=== PATIENT | female | born 1975 | race Caucasian/White ===

== ENCOUNTER 2017-12-02 12:02 | Emergency (ER) | payer OTHER, SELFPAY ==
[2017-12-02 12:08] VITALS: BP 109/71; PULSE 86; RESP 20; TEMP 36.6; O2SAT 98; BMI 36.9
--- NOTE | 2017-12-02 12:11 | DI.RAD.S_ITS ---
PROCEDURE: XR HAND RT MIN 3V INDICATIONS: injury pain TECHNIQUE: 3 views of the hand(s) acquired. COMPARISON: None. FINDINGS: Bones: No fractures or dislocations. Carpal bones are normally aligned. No suspicious bony lesions. Soft tissues: No suspicious soft tissue calcifications. There is a skin marker at the base of the fifth proximal phalanx indicating area of laceration. No underlying foreign body seen. IMPRESSION: Negative for fracture or soft tissue foreign body. Dictated by: Bienvenido Joiner M.D. on 12/02/2017 at 12:31 Approved by: Bienveindo Joiner M.D. on 12/02/2017 at 12:33
[2017-12-02] MEDS: TET,DIPH,PERTUSS(ACELL),VAC/PF 0.5 ML SYRINGE IM (12:55)
--- NOTE | 2017-12-02 13:11 | PC.NURSE ---
Soaking pts hand in NS and hibiclens
--- NOTE | 2017-12-02 13:53 | ED.UPPEXIN ---
HPI - Extremity Injury (Upper) <DEONTE Dockery - Last Filed: 12/02/17 23:32> General Chief Complaint: Extremity Injury, Upper Stated Complaint: Right hand laceration/pain Time Seen by Provider: 12/02/17 12:48 Source: patient Mode of arrival: ambulatory Limitations: no limitations History of Present Illness HPI narrative: Patient presents with right hand pain after having had stepped been a bone anchor. She states that there is a laceration next her 5th digit. She denies any decreased sensation. She denies any decreased mobility. She is not sure when her last tetanus was. Related Data Allergies Allergy/AdvReac Type Severity Reaction Status Date / Time amoxicillin Allergy Verified 12/02/17 12:07 Sulfa (Sulfonamide Allergy Verified 12/02/17 12:07 Antibiotics) Review of Systems <DEONTE Docekry - Last Filed: 12/02/17 23:32> Review of Systems GENERAL: Denies chills, fatigue, malaise, fever, sweats. HEENT: Denies sinus pain, ear pain, sore throat, difficulty swallowing, dizziness. RESPIRATORY: Denies dyspnea, cough, wheezing, hemoptysis, sputum. CARDIOVASCULAR: Denies chest pain, palpitations, orthopnea, edema, GASTROINTESTINAL: Denies nausea, vomiting, abdominal pain, diarrhea, constipation, melena. : Denies dysuria, frequency, incontinence, hematuria, urinary retention. MUSCULOSKELETAL: See HPI SKIN: HPI NEUROLOGIC: Denies weakness, headache, numbness, change in speech, confusion, seizures, incoordination. PSYCHIATRIC: No concerning psychosocial issues. 12 point review of systems is negative except for those stated above Exam <DEONTE oDckery - Last Filed: 12/02/17 23:32> Narrative Exam Narrative: GENERAL: This is a well-nourished, well-developed patient, in mild distress sitting on stretcher. HEAD: Atraumatic. Normocephalic. No temporal or scalp tenderness. EYES: Pupils equal round and reactive. Extraocular motions intact. No scleral icterus. No injection or drainage. ENT: Nose without bleeding, purulent drainage or septal hematoma. Throat without erythema, tonsillar hypertrophy or exudate. Uvula midline. Airway patent. NECK: Trachea midline. No JVD or lymphadenopathy. Supple, nontender, no meningeal signs. CARDIOVASCULAR: Regular rate and rhythm without murmurs, gallops, or rubs. RESPIRATORY: Clear to auscultation. Breath sounds equal bilaterally. No wheezes, rales, or rhonchi. GASTROINTESTINAL: Abdomen soft, non-tender, nondistended. No hepato-splenomegaly, or palpable masses. No guarding. EXTREMITIES: Pain to palpation of right he hand distal to 5th digit. Patient has full range of motion of right 5th digit and right fingers. Capillary refills less than 2 sec all fingers right hand. BACK: Nontender without deformity or crepitance. No flank tenderness. NEURO: AOx3. SKIN: The noted to have avulsion injury to distal phalanx of the right 5th digit extending down to lateral aspect of right hand. Injury is approximately 4 cm long and is noted to be an avulsion injury. No bone or tendon visible. Fascia visible. The wound is very irregular. Initial Vital Signs Initial Vital Signs: Vital Signs Temperature 97.9 F 12/02/17 12:08 Pulse Rate 86 12/02/17 12:08 Respiratory Rate 20 12/02/17 12:08 Blood Pressure 109/71 12/02/17 12:08 Pulse Oximetry 98 12/02/17 12:08 <Hira Reyes DO - Last Filed: 12/03/17 07:24> Initial Vital Signs Initial Vital Signs: Vital Signs Temperature 97.9 F 12/02/17 12:08 Pulse Rate 86 12/02/17 12:08 Respiratory Rate 20 12/02/17 12:08 Blood Pressure 109/71 12/02/17 12:08 Pulse Oximetry 98 12/02/17 12:08 Procedures <DEONTE Dockery - Last Filed: 12/02/17 23:32> Laceration Repair Laceration 1: Site: hand Side (If applicable): right Size (cm): 4 Description: flap and irregular Depth: simple, single layer Local Anesthetic: lidocaine 1% (digital block) Amount of anesthesia used (mL): 3 Pre-repair: wound explored, irrigated extensively and deep structures intact Skin layer closed with: nylon Size (cm): 6-0 Number of sutures: 8 Technique: simple, interrupted Course <DEONTE Dockery Last Filed: 12/02/17 23:32> Orders Ordered: Discontinued Medications Diphtheria/Tetanus/Acell Pertussis (Adacel) 0.5 ml IM .ONCE ONE Stop: 12/02/17 12:53 Last Admin: 12/02/17 12:55 Dose: 0.5 ml Vital Signs - 8 hr 12/02/17 12:08 Temperature 97.9 F Pulse Rate 86 Respiratory Rate 20 Blood Pressure 109/71 Pulse Oximetry 98 <Hira Reyes DO - Last Filed: 12/03/17 07:24> Orders Ordered: Discontinued Medications Diphtheria/Tetanus/Acell Pertussis (Adacel) 0.5 ml IM .ONCE ONE Stop: 12/02/17 12:53 Last Admin: 12/02/17 12:55 Dose: 0.5 ml Vital Signs - 8 hr 12/02/17 12:08 Temperature 97.9 F Pulse Rate 86 Respiratory Rate 20 Blood Pressure 109/71 Pulse Oximetry 98 MDM - Extremity Injury (Upper) <DEONTE Dockery - Last Filed: 12/02/17 23:32> Imaging Data hand xray : Radiologist's impression: [place] [address] XRay Report Signed Patient: Marisela London MR#: [id number] : 1975 Acct:[id number] Age/Sex: 41 / F Date of Service: 12/02/17 Loc: ED Accession Number: [id number] Procedure: XR hand RT min 3V Ordering Provider: Gisela Collier PROCEDURE: XR HAND RT MIN 3V INDICATIONS: injury pain TECHNIQUE: 3 views of the hand(s) acquired. COMPARISON: None. FINDINGS: Bones: No fractures or dislocations. Carpal bones are normally aligned. No suspicious bony lesions. Soft tissues: No suspicious soft tissue calcifications. There is a skin marker at the base of the fifth proximal phalanx indicating area of laceration. No underlying foreign body seen. IMPRESSION: Negative for fracture or soft tissue foreign body. Dictated by: Bienvenido Joiner M.D. on 12/02/2017 at 12:31 Approved by: Bienvenido Joiner M.D. on 12/02/2017 at 12:[address] [facility] Narrative Medical decision making narrative: Patient presented status post crush injury. She had a negative x-ray. Her wound was extensively cleaned with Hibiclens and irrigated with an entire bottle of sterile water. Her wound was closed as per procedural note. She was updated on her tetanus since she was not sure when the last one was. I discussed at length with her follow-up with her primary care physician approximately 1 week for suture removal. Discussed monitoring for signs and symptoms of infection including pus extending redness decreased mobility or any acute concerns. Patient no questions or concerns upon discharge. Discharge Plan Departure Patient Disposition: Home, Self-Care Clinical Impression: Hand crush injury, Contusion of hand, Laceration of hand Discharge Date/Time: 12/02/17 14:48 Interventions: ED Discharge Assessment Last Done: 12/02/17 14:47 Instructions: DI for Laceration Repair -- Simple, DI for Contusion, How To Perform RICE (Rest, Ice, Compress, Elevate) Activity Restrictions/Additional Instructions: Today you came in for an injury to your hand. I suggest rest, ice, compression and elevation. Monitor the sutures for signs and symptoms of infection including redness, pus fever or decreased mobility. Monitor for decreased circulation and the pinky finger of your hand. Be evaluated as soon as possible any of those occur. Take [id number] medications for pain as needed. Follow up for suture removal in about a week. <Hira Reyes DO - Last Filed: 12/03/17 07:24> Cosign ED Attending Dawson Attestation: I was available for consultation during this patient's emergency department encounter
[2017-12-02 14:47] VITALS: BP 102/59; PULSE 63; RESP 20; O2SAT 98
--- NOTE | 2017-12-02 23:32 | ED_ITS ---
HPI - Extremity Injury (Upper) <DEONTE Dockery - Last Filed: 12/02/17 23:32> General Chief Complaint: Extremity Injury, Upper Stated Complaint: Right hand laceration/pain Time Seen by Provider: 12/02/17 12:48 Source: patient Mode of arrival: ambulatory Limitations: no limitations History of Present Illness HPI narrative: Patient presents with right hand pain after having had stepped been a bone anchor. She states that there is a laceration next her 5th digit. She denies any decreased sensation. She denies any decreased mobility. She is not sure when her last tetanus was. Related Data Allergies Allergy/AdvReac Type Severity Reaction Status Date / Time amoxicillin Allergy Verified 12/02/17 12:07 Sulfa (Sulfonamide Allergy Verified 12/02/17 12:07 Antibiotics) Review of Systems <DEONTE Dockery - Last Filed: 12/02/17 23:32> Review of Systems GENERAL: Denies chills, fatigue, malaise, fever, sweats. HEENT: Denies sinus pain, ear pain, sore throat, difficulty swallowing, dizziness. RESPIRATORY: Denies dyspnea, cough, wheezing, hemoptysis, sputum. CARDIOVASCULAR: Denies chest pain, palpitations, orthopnea, edema, GASTROINTESTINAL: Denies nausea, vomiting, abdominal pain, diarrhea, constipation, melena. : Denies dysuria, frequency, incontinence, hematuria, urinary retention. MUSCULOSKELETAL: See HPI SKIN: HPI NEUROLOGIC: Denies weakness, headache, numbness, change in speech, confusion, seizures, incoordination. PSYCHIATRIC: No concerning psychosocial issues. 12 point review of systems is negative except for those stated above Exam <DEONTE Dockery - Last Filed: 12/02/17 23:32> Narrative Exam Narrative: GENERAL: This is a well-nourished, well-developed patient, in mild distress sitting on stretcher. HEAD: Atraumatic. Normocephalic. No temporal or scalp tenderness. EYES: Pupils equal round and reactive. Extraocular motions intact. No scleral icterus. No injection or drainage. ENT: Nose without bleeding, purulent drainage or septal hematoma. Throat without erythema, tonsillar hypertrophy or exudate. Uvula midline. Airway patent. NECK: Trachea midline. No JVD or lymphadenopathy. Supple, nontender, no meningeal signs. CARDIOVASCULAR: Regular rate and rhythm without murmurs, gallops, or rubs. RESPIRATORY: Clear to auscultation. Breath sounds equal bilaterally. No wheezes , rales, or rhonchi. GASTROINTESTINAL: Abdomen soft, non-tender, nondistended. No hepato-splenomegaly , or palpable masses. No guarding. EXTREMITIES: Pain to palpation of right he hand distal to 5th digit. Patient has full range of motion of right 5th digit and right fingers. Capillary refills less than 2 sec all fingers right hand. BACK: Nontender without deformity or crepitance. No flank tenderness. NEURO: AOx3. SKIN: The noted to have avulsion injury to distal phalanx of the right 5th digit extending down to lateral aspect of right hand. Injury is approximately 4 cm long and is noted to be an avulsion injury. No bone or tendon visible. Fascia visible. The wound is very irregular. Initial Vital Signs Initial Vital Signs: Vital Signs Temperature 97.9 F 12/02/17 12:08 Pulse Rate 86 12/02/17 12:08 Respiratory Rate 20 12/02/17 12:08 Blood Pressure 109/71 12/02/17 12:08 Pulse Oximetry 98 12/02/17 12:08 <Hira Reyes DO - Last Filed: 12/03/17 07:24> Initial Vital Signs Initial Vital Signs: Vital Signs Temperature 97.9 F 12/02/17 12:08 Pulse Rate 86 12/02/17 12:08 Respiratory Rate 20 12/02/17 12:08 Blood Pressure 109/71 12/02/17 12:08 Pulse Oximetry 98 12/02/17 12:08 Procedures <DEONTE Dockery - Last Filed: 12/02/17 23:32> Laceration Repair Laceration 1: Site: hand Side (If applicable): right Size (cm): 4 Description: flap and irregular Depth: simple, single layer Local Anesthetic: lidocaine 1% (digital block) Amount of anesthesia used (mL): 3 Pre-repair: wound explored, irrigated extensively and deep structures intact Skin layer closed with: nylon Size (cm): 6-0 Number of sutures: 8 Technique: simple, interrupted Course <DEONTE Dockery Last Filed: 12/02/17 23:32> Orders Ordered: Discontinued Medications Diphtheria/Tetanus/Acell Pertussis (Adacel) 0.5 ml IM .ONCE ONE Stop: 12/02/17 12:53 Last Admin: 12/02/17 12:55 Dose: 0.5 ml Vital Signs - 8 hr 12/02/17 12:08 Temperature 97.9 F Pulse Rate 86 Respiratory Rate 20 Blood Pressure 109/71 Pulse Oximetry 98 <Hira Reyes DO - Last Filed: 12/03/17 07:24> Orders Ordered: Discontinued Medications Diphtheria/Tetanus/Acell Pertussis (Adacel) 0.5 ml IM .ONCE ONE Stop: 12/02/17 12:53 Last Admin: 12/02/17 12:55 Dose: 0.5 ml Vital Signs - 8 hr 12/02/17 12:08 Temperature 97.9 F Pulse Rate 86 Respiratory Rate 20 Blood Pressure 109/71 Pulse Oximetry 98 MDM - Extremity Injury (Upper) <DEONTE Dockery - Last Filed: 12/02/17 23:32> Imaging Data hand xray : Radiologist's impression: [place] [address] XRay Report Signed Patient: Marisela London MR#: [id number] : 1975 Acct:[id number] Age/Sex: 41 / F Date of Service: 12/02/17 Loc: ED Accession Number: [id number] Procedure: XR hand RT min 3V Ordering Provider: Gisela Collier PROCEDURE: XR HAND RT MIN 3V INDICATIONS: injury pain TECHNIQUE: 3 views of the hand(s) acquired. COMPARISON: None. FINDINGS: Bones: No fractures or dislocations. Carpal bones are normally aligned. No suspicious bony lesions. Soft tissues: No suspicious soft tissue calcifications. There is a skin marker at the base of the fifth proximal phalanx indicating area of laceration. No underlying foreign body seen. IMPRESSION: Negative for fracture or soft tissue foreign body. Dictated by: Bienvenido Joiner M.D. on 12/02/2017 at 12:31 Approved by: Bienvenido Joiner M.D. on 12/02/2017 at 12:33 [facility] Narrative Medical decision making narrative: Patient presented status post crush injury. She had a negative x-ray. Her wound was extensively cleaned with Hibiclens and irrigated with an entire bottle of sterile water. Her wound was closed as per procedural note. She was updated on her tetanus since she was not sure when the last one was. I discussed at length with her follow-up with her primary care physician approximately 1 week for suture removal. Discussed monitoring for signs and symptoms of infection including pus extending redness decreased mobility or any acute concerns. Patient no questions or concerns upon discharge. Discharge Plan Departure Patient Disposition: Home, Self-Care Clinical Impression: Hand crush injury, Contusion of hand, Laceration of hand Discharge Date/Time: 12/02/17 14:48 Interventions: ED Discharge Assessment Last Done: 12/02/17 14:47 Instructions: DI for Laceration Repair -- Simple, DI for Contusion, How To Perform RICE (Rest, Ice, Compress, Elevate) Activity Restrictions/Additional Instructions: Today you came in for an injury to your hand. I suggest rest, ice, compression and elevation. Monitor the sutures for signs and symptoms of infection including redness, pus fever or decreased mobility. Monitor for decreased circulation and the pinky finger of your hand. Be evaluated as soon as possible any of those occur. Take [id number] medications for pain as needed. Follow up for suture removal in about a week. <Hira Reyes DO - Last Filed: 12/03/17 07:24> Cosign ED Attending Dawson Attestation: I was available for consultation during this patient's emergency department encounter
== END 2017-12-02 14:48 | disposition home or self-care (01) ==
PROVIDERS: Emergency Provider Nurse Practitioner Family
DX: S61.411A Laceration without foreign body of right hand, initial encounter (principal); S60.221A Contusion of right hand, initial encounter; W23.0XXA Caught, crushed, jammed, or pinched between moving objects, initial encounter
CPT/HCPCS: 12002; 73130; 90471; 99283; 90715